=== PATIENT | female | born 1970 | race Caucasian/White ===

== ENCOUNTER 2023-09-04 09:50 | Emergency (ER) | payer MEDICARE, OTHER ==
[~2023-09-04] VITALS: Ht 157.5 cm; Wt 98.0 kg
[2023-09-04 10:00] VITALS: BP 138/91; TEMP 98.4; O2SAT 97
[2023-09-04 10:46] LABS: CALCIUM, SERUM 9.8 mg/dL (8.5-10.1); CREATININE 0.6 mg/dL (0.6-1.3)
[2023-09-04 10:58] LABS: POTASSIUM 2.8 mmol/L (3.5-5.1)
[2023-09-04] MEDS ORDERED: POTASSIUM CHLORIDE 20 MEQ TAB.PRT.SR PO ONE ×3 (11:23→11:30)
== END 2023-09-04 11:39 | disposition home or self-care (01) ==
LOC: ER 10:10
DX: Z01.812 Encounter for preprocedural laboratory examination (principal); E87.6 Hypokalemia; E11.9 Type 2 diabetes mellitus without complications; E78.1 Pure hyperglyceridemia
CPT/HCPCS: 36415; 80048-TC; 80061-TC; 83735-TC

== ENCOUNTER 2023-09-09 06:49 | Inpatient (IN) | payer MEDICARE, OTHER ==
[~2023-09-09] VITALS: Ht 157.5 cm; Wt 90.7 kg
[2023-09-09 07:00] VITALS: BP 133/89; TEMP 97.7; O2SAT 97
[2023-09-09] MEDS ORDERED: dexaMETHasone SOD PHOSPHATE 10 MG/ML VIAL ONE (07:59)
[2023-09-09] MEDS ORDERED: VANCOMYCIN 1 GM VIAL ONE (07:59)
[2023-09-09] MEDS ORDERED: LIDOCAINE 2%-EPI 1:100,000 30 ML VIAL ONE (08:00)
[2023-09-09] MEDS ORDERED: OXYMETAZOLINE HCL NASAL SPRAY 30 ML BOTTLE NS ONE (08:00)
[2023-09-09 08:36] LABS: PREGNANCY TEST URINE QUAL NEGATIVE (NEGATIVE)
[2023-09-09] MEDS ORDERED: FENTANYL PF 250MCG/5ML AMPUL ONE (08:52)
[2023-09-09] MEDS ORDERED: ROCURONIUM BROMIDE 50 MG/5 ML ONE ×2 (08:53→11:24)
[2023-09-09] MEDS ORDERED: TRANEXAMIC ACID 1,000 MG/10 ML VIAL IV ONE (10:26)
[2023-09-09] MEDS ORDERED: POTASSIUM CHLORIDE 10 MEQ/50 ML PREMIXED IVPB FOR PERIPHERAL LINE IV ONE (11:05)
[2023-09-09] MEDS ORDERED: IV NS 0.9% 1,000 ML IV PRN (13:00)
[2023-09-09] MEDS ORDERED: ACETAMINOPHEN 325 MG TABLET PO PRN ×2 (13:00→21:00)
[2023-09-09] MEDS: HYDROMORPHONE 1 MG/1 ML DISP.SYRIN IV PRN ×3 (13:04→19:05)
[2023-09-09] MEDS ORDERED: OLME1TAB92 PO (13:28)
[2023-09-09] MEDS ORDERED: ROSU20TA32 PO (13:28)
[2023-09-09] MEDS ORDERED: METF-867 PO (13:28)
[2023-09-09] MEDS ORDERED: DAPA5TAB PO (13:28)
[2023-09-09] MEDS ORDERED: INSU100I30 SQ (13:28)
[2023-09-09] MEDS ORDERED: METO25TA4 PO (13:28)
[2023-09-09] MEDS ORDERED: CELE-85 PO (13:28)
[2023-09-09] MEDS ORDERED: CLON1PAT13 TP (13:28)
[2023-09-09] MEDS ORDERED: ESCI5TAB PO (13:28)
[2023-09-09] MEDS ORDERED: ESOM40CA52 PO (13:28)
[2023-09-09] MEDS ORDERED: BREX3TAB PO (13:28)
[2023-09-09 13:32] LABS: THYROID STIMULATING HORMONE 3.196 uIU/mL (0.358-3.74)
[2023-09-09] MEDS: ONDANSETRON HCL/PF 4 MG/2 ML VIAL IV PRN ×2 (15:27→19:46)
[2023-09-09 16:00] VITALS: BP_SYST 120; BP_SYST 156; BP_DIAS 80; BP_DIAS 91; TEMP 98.1; TEMP 98.2; O2SAT 96; O2SAT 97
[2023-09-09 20:00] VITALS: BP 126/76; TEMP 97.7; O2SAT 95
[2023-09-09] MEDS: VANCOMYCIN 1 GM in IV D5W 250ml IV SCH (20:09)
[2023-09-09] MEDS ORDERED: Z GUARD REMEDY 4 OZ OINT TP PRN (21:00)
[2023-09-09] MEDS ORDERED: ONDANSETRON HCL/PF 4 MG/2 ML VIAL IVP PRN (21:00)
[2023-09-09] MEDS: PANTOPRAZOLE 40 MG/PACK PACK PO ONE ×2 (21:00→21:54)
[2023-09-09] MEDS ORDERED: IV D5/0.45 NACL 1,000 ML IV PRN (21:00)
[2023-09-09] MEDS ORDERED: INSULIN REGULAR, HUMAN 100 UNIT/ML 3 ML VIAL SQ PRN (21:00)
[2023-09-09] MEDS ORDERED: DEXTROSE 50%-WATER 50 ML DISP.SYRIN IV PRN (21:00)
[2023-09-09 21:31] LABS: CALCIUM, SERUM 8.6 mg/dL (8.5-10.1); CREATININE 0.9 mg/dL (0.6-1.3); POTASSIUM 4.1 mmol/L (3.5-5.1)
[2023-09-09] MEDS: BLOOD SUGAR DIAGNOSTIC 1 EACH STRIP IN SCH ×2 (21:55→22:00)
[2023-09-09] MEDS ORDERED: ATORVASTATIN 40 MG TABLET PO SCH (22:00)
[2023-09-10] MEDS: HYDROMORPHONE 1 MG/1 ML DISP.SYRIN IV PRN (02:53)
[2023-09-10 07:29] LABS: MAGNESIUM 2.1 mg/dL (1.8-2.4); PHOSPHORUS 4.3 mg/dL (2.5-4.9)
[2023-09-10] MEDS: BLOOD SUGAR DIAGNOSTIC 1 EACH STRIP IN SCH ×2 (07:30→12:00)
[2023-09-10 08:45] LABS: ALBUMIN 3.3 g/dL (3.4-5.0); BILIRUBIN,TOTAL 0.3 mg/dL (0.2-1.0); CALCIUM, SERUM 9.1 mg/dL (8.5-10.1); CREATININE 0.9 mg/dL (0.6-1.3); POTASSIUM 3.2 mmol/L (3.5-5.1)
[2023-09-10 09:30] VITALS: BP 120/75; TEMP 98.1; O2SAT 96
[2023-09-10] MEDS: METFORMIN XR 500 MG TAB.SR.24H PO SCH (09:40)
[2023-09-10] MEDS: ESCITALOPRAM OXALATE (10 MG) 10 MG TABLET PO SCH (09:40)
[2023-09-10] MEDS: VANCOMYCIN 1 GM in IV D5W 250ml IV SCH (09:44)
[2023-09-10] MEDS: ONDANSETRON HCL/PF 4 MG/2 ML VIAL IV PRN (09:45)
== END 2023-09-10 16:20 | disposition home or self-care (01) | DRG 141 ==
LOC: DS 06:49 → MED 06:50
PROVIDERS: ADMIT Nurse Practitioner Acute Care; ATTEND Nurse Practitioner Acute Care
PROC: 0NSR04Z Reposition Maxilla with Internal Fixation Device, Open Approach (ICD-10-PCS; principal; 2023-09-09)
PROC: 0NUR07Z Supplement Maxilla with Autologous Tissue Substitute, Open Approach (ICD-10-PCS; 2023-09-09)
PROC: 0NSV0ZZ Reposition Left Mandible, Open Approach (ICD-10-PCS; 2023-09-09)
PROC: 0NUV07Z Supplement Left Mandible with Autologous Tissue Substitute, Open Approach (ICD-10-PCS; 2023-09-09)
PROC: 0NBV0ZX Excision of Left Mandible, Open Approach, Diagnostic (ICD-10-PCS; 2023-09-09)
PROC: 0NBR0ZX Excision of Maxilla, Open Approach, Diagnostic (ICD-10-PCS; 2023-09-09)
DX: S02.40DB Maxillary fracture, left side, initial encounter for open fracture (principal); E87.1 Hypo-osmolality and hyponatremia; S02.40CB Maxillary fracture, right side, initial encounter for open fracture; I10 Essential (primary) hypertension; E87.6 Hypokalemia; E11.9 Type 2 diabetes mellitus without complications; M27.2 Inflammatory conditions of jaws; Z98.84 Bariatric surgery status; Z90.49 Acquired absence of other specified parts of digestive tract; D50.9 Iron deficiency anemia, unspecified; K02.9 Dental caries, unspecified; S02.69XB Fracture of mandible of other specified site, initial encounter for open fracture; X58.XXXA Exposure to other specified factors, initial encounter; Y93.9 Activity, unspecified; Y92.009 Unspecified place in unspecified non-institutional (private) residence as the place of occurrence of the external cause; D16.5 Benign neoplasm of lower jaw bone; Z79.4 Long term (current) use of insulin
CPT/HCPCS: 36415; 80048-TC; 80053-TC; 80061-TC; 82728-TC; 82962-TC; 83540-TC; 83735-TC; 84100-TC; 84132-TC; 84439-TC; 84443-TC; 84703-TC; A4223; C1713; G0378; J0461; J0690; J1100; J1170; J1815; J1885; J2250; J2310; J2405; J3010; J3370; J3480; J3490; J7030; J7060

== ENCOUNTER 2024-01-19 09:14 | Outpatient (CLI) | payer MEDICARE, OTHER ==
[~2024-01-19 09:14] MED LIST: BREX3TAB PO; CELE-85 PO; CLON1PAT13 TP; DAPA5TAB PO; ESCI5TAB PO; ESOM40CA52 PO; INSU100I30 SQ; METF-867 PO; METO25TA4 PO; OLME1TAB92 PO; ROSU20TA32 PO
[2024-01-19 10:50] LABS: BASOPHILS % (AUTO) 0.4 % (0.0-2.0); EOSINOPHILS # (AUTO) 0.1 K/uL (0.0-0.7); HEMATOCRIT 33 % (33-45); HEMOGLOBIN 10.8 g/dL (11.5-14.8); LYMPHOCYTES # (AUTO) 1.4 K/uL (0.8-4.8); LYMPHOCYTES % (AUTO) 20.2 % (20.0-44.0); MEAN CORPUSCULAR HEMOGLOBIN 25 PG (26.0-33.0); MEAN CORPUSCULAR HGB CONC 33 g/dl (31.0-36.0); MEAN CORPUSCULAR VOLUME 76 fL (82-100); MONOCYTES # (AUTO) 0.4 K/uL (0.1-1.30); MONOCYTES % (AUTO) 6.1 % (2.0-12.0); NEUTROPHILS % (AUTO) 71.3 % (43.0-81.0); PLATELET COUNT (AUTO) 200 K/uL (150-450); RED BLOOD CELL COUNT(AUTO) 4.29 MIL/uL (4.0-5.2); RED CELL DISTRIBUTION WIDTH 16.4 % (11.5-15.0); WHITE BLOOD COUNT (AUTO) 7.1 K/uL (4.3-11.0)
[2024-01-19 10:55] LABS: APPEARANCE,URINE CLOUDY (CLEAR); BILIRUBIN,URINE NEGATIVE (NEGATIVE); BLOOD, URINE 3+ Ery/uL (NEGATIVE); COLOR,URINE YELLOW (YELLOW); KETONES,URINE NEGATIVE (NEGATIVE); LEUKOCYTE ESTERASE ,URINE 1+ (NEGATIVE); NITRITE, URINE NEGATIVE (NEGATIVE); PH,URINE 5.5 (5.0-8.0); PROTEIN,URINE TRACE mg/dl (NEGATIVE); UGLUCOSE NEGATIVE (NEGATIVE); UROBILINOGEN,URINE 0.2 EU/dL (0.2)
[2024-01-19 10:58] LABS: ADD URINE CULTURE YES; BACTERIA,URINE Rare /HPF (None Seen); SQUAMOUS EPITHELIAL CELL,UR Few /HPF (None Seen)
[2024-01-19 11:05] LABS: INR 0.92 (0.91-1.10); PARTIAL THROMBOPLASTIN TIME 27.7 SEC (24.3-34.3); PROTHROMBIN TIME 9.8 SECS (9.2-11.1)
[2024-01-19 11:09] LABS: CALCIUM, SERUM 8.9 mg/dL (8.5-10.1); CREATININE 0.4 mg/dL (0.6-1.3)
== END 2024-01-19 23:59 | disposition home or self-care (01) ==
LOC: RAD 09:14
PROVIDERS: ATTEND Internal Medicine Pulmonary Disease
DX: Z01.818 Encounter for other preprocedural examination (principal)
CPT/HCPCS: 36415; 71045-TC; 80048-TC; 81001; 85025-TC; 85730-TC; 87086-TC

== ENCOUNTER 2024-02-03 06:53 | Inpatient (IN) | payer MEDICARE, OTHER ==
[~2024-02-03] VITALS: Ht 157.5 cm; Wt 90.7 kg
[2024-02-03 08:12] LABS: PREGNANCY TEST URINE QUAL NEGATIVE (NEGATIVE)
[2024-02-03] MEDS ORDERED: OXYMETAZOLINE HCL NASAL SPRAY 30 ML BOTTLE NS ONE (10:03)
[2024-02-03] MEDS ORDERED: ROCURONIUM BROMIDE 50 MG/5 ML ONE (10:08)
[2024-02-03] MEDS ORDERED: FENTANYL PF 100MCG/2ML AMPUL ONE (10:08)
[2024-02-03] MEDS ORDERED: FAMOTIDINE/PF INJ 20 MG/2 ML VIAL IV ONE (10:08)
[2024-02-03] MEDS ORDERED: MIDAZOLAM HCL 2 MG/2ML VIAL ONE (10:08)
[2024-02-03] MEDS: POTASSIUM CL. PREMIX PERIPHER. 50 ML IV SCH (10:30)
[2024-02-03] MEDS ORDERED: VANCOMYCIN 1 GM VIAL ONE (10:42)
[2024-02-03] MEDS ORDERED: LIDOCAINE 2%-EPI 1:100,000 30 ML VIAL ONE (10:42)
[2024-02-03] MEDS ORDERED: dexaMETHasone SOD PHOSPHATE 1 ML ONE (10:42)
[2024-02-03] MEDS ORDERED: LABETALOL HCL IV 100MG VIAL ONE (12:07)
[2024-02-03] MEDS ORDERED: KETOROLAC TROMETHAMINE INJ 30 MG/ML VIAL ONE (12:57)
[2024-02-03] MEDS ORDERED: HYDROMORPHONE 1 MG/1 ML DISP.SYRIN ONE (13:11)
[2024-02-03] MEDS: IV NS 0.9% 1,000 ML IV PRN (15:22)
[2024-02-03 16:00] VITALS: BP 143/79; TEMP 97.7; O2SAT 97
[2024-02-03] MEDS ORDERED: OLME1TAB19 PO (16:43)
[2024-02-03] MEDS ORDERED: METO-357 PO (16:43)
[2024-02-03] MEDS ORDERED: POTA-10 PO (16:43)
[2024-02-03] MEDS ORDERED: MAGNESIUM HYDROXIDE 30 ML UDC PO PRN (18:30)
[2024-02-03] MEDS ORDERED: ACETAMINOPHEN 325 MG TABLET PO PRN (18:30)
[2024-02-03] MEDS ORDERED: Z GUARD REMEDY 4 OZ OINT TP PRN (18:30)
[2024-02-03] MEDS ORDERED: ONDANSETRON HCL/PF 4 MG/2 ML VIAL IVP PRN (18:30)
[2024-02-03] MEDS ORDERED: MAG HYDROX/AL HYDROX/SIMETH 30 ML UDC PO PRN (18:30)
[2024-02-03] MEDS ORDERED: HYDROCODONE/APAP 10/325MG TABLET PO PRN (18:30)
[2024-02-03 20:27] VITALS: BP 138/67; TEMP 99.1; O2SAT 93
[2024-02-03] MEDS: ZOLPIDEM TARTRATE 5 MG TABLET PO PRN (21:16)
[2024-02-03] MEDS: ACETAMINOPHEN 325 MG TABLET PO PRN (22:18)
[2024-02-04] MEDS: HYDROCODONE/APAP 5/325MG TABLET PO PRN (00:59)
[2024-02-04 07:16] LABS: BASOPHILS % (AUTO) 0.2 % (0.0-2.0); EOSINOPHILS % (AUTO) 0.3 % (0.0-6.0); HEMATOCRIT 33 % (33-45); HEMOGLOBIN 10.8 g/dL (11.5-14.8); LYMPHOCYTES # (AUTO) 1.5 K/uL (0.8-4.8); LYMPHOCYTES % (AUTO) 14.4 % (20.0-44.0); MEAN CORPUSCULAR HEMOGLOBIN 25 PG (26.0-33.0); MEAN CORPUSCULAR HGB CONC 33 g/dl (31.0-36.0); MEAN CORPUSCULAR VOLUME 76 fL (82-100); MONOCYTES # (AUTO) 0.8 K/uL (0.1-1.30); MONOCYTES % (AUTO) 7.4 % (2.0-12.0); NEUTROPHILS % (AUTO) 77.7 % (43.0-81.0); PLATELET COUNT (AUTO) 244 K/uL (150-450); RED BLOOD CELL COUNT(AUTO) 4.35 MIL/uL (4.0-5.2); RED CELL DISTRIBUTION WIDTH 16.6 % (11.5-15.0); WHITE BLOOD COUNT (AUTO) 10.3 K/uL (4.3-11.0)
[2024-02-04] MEDS: PANTOPRAZOLE 40 MG TABLET.DR PO SCH (08:04)
[2024-02-04 08:07] LABS: CALCIUM, SERUM 9.5 mg/dL (8.5-10.1); CREATININE 0.6 mg/dL (0.6-1.3); MAGNESIUM 1.9 mg/dL (1.8-2.4); POTASSIUM 3.8 mmol/L (3.5-5.1)
[2024-02-04] MEDS ORDERED: HYDR-3972 PO (09:13)
== END 2024-02-04 10:15 | disposition home or self-care (01) | DRG 908 ==
LOC: DS 06:53 → MED 15:38
PROVIDERS: ADMIT Nurse Practitioner Acute Care; ATTEND Nurse Practitioner Acute Care
PROC: 0NBR0ZZ Excision of Maxilla, Open Approach (ICD-10-PCS; principal; 2024-02-03)
PROC: 0NPW04Z Removal of Internal Fixation Device from Facial Bone, Open Approach (ICD-10-PCS; 2024-02-03)
PROC: 0NSR04Z Reposition Maxilla with Internal Fixation Device, Open Approach (ICD-10-PCS; 2024-02-03)
PROC: 0NPW0JZ Removal of Synthetic Substitute from Facial Bone, Open Approach (ICD-10-PCS; 2024-02-03)
PROC: 0NUR07Z Supplement Maxilla with Autologous Tissue Substitute, Open Approach (ICD-10-PCS; 2024-02-03)
PROC: 0NUV0JZ Supplement Left Mandible with Synthetic Substitute, Open Approach (ICD-10-PCS; 2024-02-03)
PROC: 0NBV0ZX Excision of Left Mandible, Open Approach, Diagnostic (ICD-10-PCS; 2024-02-03)
DX: T86.831 Bone graft failure (principal); S02.40CK Maxillary fracture, right side, subsequent encounter for fracture with nonunion; T84.69XA Infection and inflammatory reaction due to internal fixation device of other site, initial encounter; S02.69XK Fracture of mandible of other specified site, subsequent encounter for fracture with nonunion; Y83.2 Surgical operation with anastomosis, bypass or graft as the cause of abnormal reaction of the patient, or of later complication, without mention of misadventure at the time of the procedure; I10 Essential (primary) hypertension; E66.9 Obesity, unspecified; E11.9 Type 2 diabetes mellitus without complications; E87.6 Hypokalemia; Z79.4 Long term (current) use of insulin; Z90.49 Acquired absence of other specified parts of digestive tract; Z98.891 History of uterine scar from previous surgery; Z68.36 Body mass index [BMI] 36.0-36.9, adult; D64.9 Anemia, unspecified; Y83.8 Other surgical procedures as the cause of abnormal reaction of the patient, or of later complication, without mention of misadventure at the time of the procedure; Y92.009 Unspecified place in unspecified non-institutional (private) residence as the place of occurrence of the external cause; J32.0 Chronic maxillary sinusitis
CPT/HCPCS: 36415; 80048-TC; 80061-TC; 83735-TC; 84100-TC; 84132-TC; 84703-TC; 85025-TC; 88300-TC; 88305-TC; 88311-TC; A4223; C1713; G0378; J1100; J1170; J1885; J2250; J2405; J2704; J2765; J3010; J3370; J3480; J3490; J7030; J7040

== ENCOUNTER 2024-12-01 08:06 | Inpatient (IN) | payer MEDICARE, OTHER ==
[~2024-12-01] VITALS: Ht 157.5 cm; Wt 84.4 kg
[~2024-12-01 08:06] MED LIST changes: -BREX3TAB PO; -CELE-85 PO; -CLON1PAT13 TP; -DAPA5TAB PO; -ESCI5TAB PO; -ESOM40CA52 PO; +HYDR-3972 PO; -INSU100I30 SQ; -METF-867 PO; +METO-357 PO; -METO25TA4 PO; +OLME1TAB19 PO; -OLME1TAB92 PO; +POTA-10 PO; -ROSU20TA32 PO
[2024-12-01] MEDS: POTASSIUM CL. PREMIX PERIPHER. 50 ML IV SCH (09:55)
[2024-12-01] MEDS ORDERED: LIDOCAINE 2%-EPI 1:200,000 20 ML VIAL IJ ONE (12:37)
[2024-12-01] MEDS ORDERED: VANCOMYCIN 1 GM VIAL ONE (12:37)
[2024-12-01] MEDS ORDERED: OXYMETAZOLINE HCL NASAL SPRAY 30 ML BOTTLE NS ONE (12:37)
[2024-12-01] MEDS ORDERED: dexaMETHasone SOD PHOSPHATE 1 ML ONE (12:37)
[2024-12-01 16:00] VITALS: BP 156/90; TEMP 97.7; O2SAT 95
[2024-12-01] MEDS: HYDROMORPHONE 1 MG/1 ML DISP.SYRIN IV PRN (16:09)
[2024-12-01] MEDS: IV NS 0.9% 1,000 ML IV PRN (17:32)
[2024-12-01] MEDS: ONDANSETRON HCL/PF 4 MG/2 ML VIAL IV PRN (17:39)
[2024-12-01 20:00] VITALS: BP 124/77; TEMP 98.1; O2SAT 95
[2024-12-01] MEDS ORDERED: DEXTROSE 50%-WATER 50 ML DISP.SYRIN IV PRN (22:00)
[2024-12-01] MEDS ORDERED: MAGNESIUM HYDROXIDE 30 ML UDC PO PRN (22:00)
[2024-12-01] MEDS ORDERED: ACETAMINOPHEN 325 MG TABLET PO PRN (22:00)
[2024-12-01] MEDS ORDERED: ONDANSETRON HCL/PF 4 MG/2 ML VIAL IVP PRN (22:00)
[2024-12-01] MEDS ORDERED: IV NS 0.9% 1,000 ML IV ONE (22:00)
[2024-12-01] MEDS ORDERED: MAG HYDROX/AL HYDROX/SIMETH 30 ML UDC PO PRN (22:00)
[2024-12-01] MEDS: VANCOMYCIN 1 GM in IV D5W 250ml IV SCH (22:01)
[2024-12-01] MEDS: INSULIN REGULAR, HUMAN 100 UNIT/ML 3 ML VIAL SQ PRN (22:23)
[2024-12-01] MEDS: BLOOD SUGAR DIAGNOSTIC 1 EACH STRIP IN SCH (22:23)
[2024-12-02] MEDS: ACETAMINOPHEN 325 MG TABLET PO PRN (03:33)
[2024-12-02 07:00] VITALS: BP 137/77; TEMP 98.2; O2SAT 100
[2024-12-02] MEDS ORDERED: EMPA25TA PO (08:51)
[2024-12-02] MEDS ORDERED: CLON1PAT13 TD (08:51)
[2024-12-02] MEDS ORDERED: OLME40TA18 PO (08:51)
[2024-12-02] MEDS ORDERED: ROSU20TA32 PO (08:51)
[2024-12-02] MEDS ORDERED: AMOX1TAB16 PO (08:51)
[2024-12-02] MEDS ORDERED: ERGO500093 PO (08:51)
[2024-12-02] MEDS ORDERED: OLME40TA12 PO (08:51)
[2024-12-02] MEDS ORDERED: MOUNJARO SQ (08:51)
[2024-12-02] MEDS: POTASSIUM CHLORIDE 10 MEQ TABLET.SA PO SCH (09:03)
[2024-12-02 09:04] VITALS: BP 137/77
[2024-12-02] MEDS: METOPROLOL SUCCINATE 50 MG TAB.SR.24H PO SCH (09:04)
[2024-12-02] MEDS: LOSARTAN POTASSIUM 50 MG TABLET PO SCH (10:30)
[2024-12-02] MEDS ORDERED: HYDROCHLOROTHIAZIDE 25 MG TABLET PO SCH (10:30)
== END 2024-12-02 12:30 | disposition home or self-care (01) | DRG 142 ==
LOC: DS 08:06 → MED 16:04
PROVIDERS: ATTEND Student in an Organized Health Care Education/Training Program
PROC: 0NUT07Z Supplement Right Mandible with Autologous Tissue Substitute, Open Approach (ICD-10-PCS; principal; 2024-12-01)
PROC: 0NUV07Z Supplement Left Mandible with Autologous Tissue Substitute, Open Approach (ICD-10-PCS; principal; 2024-12-01)
PROC: 0N5T0ZZ Destruction of Right Mandible, Open Approach (ICD-10-PCS; principal; 2024-12-01)
PROC: 0NST04Z Reposition Right Mandible with Internal Fixation Device, Open Approach (ICD-10-PCS; principal; 2024-12-01)
PROC: 0NSV04Z Reposition Left Mandible with Internal Fixation Device, Open Approach (ICD-10-PCS; principal; 2024-12-01)
PROC: 0N5V0ZZ Destruction of Left Mandible, Open Approach (ICD-10-PCS; principal; 2024-12-01)
DX: S02.609A Fracture of mandible, unspecified, initial encounter for closed fracture (principal); X58.XXXA Exposure to other specified factors, initial encounter; T18.0XXA Foreign body in mouth, initial encounter; M27.2 Inflammatory conditions of jaws; Y93.9 Activity, unspecified; Y92.9 Unspecified place or not applicable; Y99.9 Unspecified external cause status; E11.9 Type 2 diabetes mellitus without complications; I10 Essential (primary) hypertension; Z79.4 Long term (current) use of insulin; Z68.34 Body mass index [BMI] 34.0-34.9, adult; E87.6 Hypokalemia; D64.9 Anemia, unspecified; E66.9 Obesity, unspecified
CPT/HCPCS: 36415; 82962-TC; 84132-TC; 84702-TC; 88305-TC; 88311-TC; A4223; A4338; C1713; G0378; J0360; J0690; J1100; J1171; J1815; J1885; J2405; J2704; J3370; J3480; J3490; J7030; J7060